=== PATIENT | female | born 2000 | race Caucasian/White ===

== ENCOUNTER 2024-02-12 17:46 | Emergency (ER) | payer OTHER ==
[~2024-02-12] VITALS: Ht 152.4 cm; Wt 72.7 kg
[2024-02-12 17:47] VITALS: BP 124/72; TEMP 97.5; O2SAT 100
[2024-02-12 18:26] LABS: BASO % 0.4 % (0.0-1.0); EOS # 0.2 10^3/uL (0.0-0.5); EOS % 2.4 % (0.0-3.0); HEMATOCRIT 40.6 % (36.0-47.0); HEMOGLOBIN 13.5 g/dl (12.0-15.5); LYMPH # 1.8 10^3/uL (1.5-5.0); LYMPH % 24.7 % (24.0-44.0); MEAN CORPUSCULAR HEMOGLOBIN 29.5 pg (27.0-33.0); MEAN CORPUSCULAR HGB CONC 33.3 g/dl (32.0-36.5); MEAN CORPUSCULAR VOLUME 88.6 fl (80.0-96.0); MONO # 0.5 10^3/uL (0.0-0.8); MONO % 6.8 % (2.0-8.0); NEUTROPHILS # 4.6 10^3/uL (1.5-8.5); NEUTROPHILS % 65.6 % (36.0-66.0); PLATELET COUNT, AUTOMATED 321 10^3/uL (150-450); RED BLOOD COUNT 4.58 10^6/uL (4.00-5.40); WHITE BLOOD COUNT 7.1 10^3/uL (4.0-10.0)
[2024-02-12 19:02] LABS: BLOOD UREA NITROGEN 11 MG/DL (9-23); CALCIUM LEVEL 9.2 MG/DL (8.5-10.1); CARBON DIOXIDE LEVEL 24 MMOL/L (20-31); CHLORIDE LEVEL 110 MMOL/L (98-107); CREATININE FOR GFR 0.64 MG/DL (0.55-1.30); GLOMERULAR FILTRATION RATE > 60.0 (>60); GLUCOSE, FASTING 83 MG/DL (60-100); POTASSIUM SERUM 4.5 MMOL/L (3.5-5.1); SODIUM LEVEL 138 MMOL/L (136-145)
[2024-02-12 19:41] LABS: HCG, SERUM QUANTITATIVE 163731.4 MIU/ML (<4.2)
== END 2024-02-12 21:52 | disposition home or self-care (01) ==
LOC: M ED 17:46
DX: O26.851 Spotting complicating pregnancy, first trimester (principal); O99.351 Diseases of the nervous system complicating pregnancy, first trimester; G47.00 Insomnia, unspecified; Z3A.01 Less than 8 weeks gestation of pregnancy

== ENCOUNTER 2024-08-10 19:06 | Emergency (ER) | payer BC, MEDICAID, OTHER ==
[~2024-08-10] VITALS: Ht 152.4 cm; Wt 63.6 kg
[2024-08-10 19:12] VITALS: BP 154/73; TEMP 101; O2SAT 97
[2024-08-10] MEDS ORDERED: LEVO125T4 PO (19:43)
[2024-08-10] MEDS ORDERED: VITAD400CA FT (19:43)
[2024-08-10] MEDS ORDERED: ACET-897 PO (19:43)
[2024-08-10] MEDS ORDERED: VITA100T59 PO (19:43)
[2024-08-10] MEDS ORDERED: PRENTAB9 PO (19:43)
[2024-08-10] MEDS ORDERED: VENTAER INH (19:45)
== END 2024-08-10 19:15 | disposition admitted as inpatient to this hospital (09) ==
LOC: M ED 19:06
DX: Z53.21 Procedure and treatment not carried out due to patient leaving prior to being seen by health care provider (principal)

== ENCOUNTER 2024-08-10 19:20 | Outpatient (CLI) | payer BC, OTHER ==
[~2024-08-10] VITALS: Ht 152.4 cm; Wt 80.7 kg
[2024-08-10 19:41] VITALS: BP 118/67; O2SAT 97
[2024-08-10] MEDS ORDERED: ACET-897 PO (19:43)
[2024-08-10] MEDS ORDERED: VITAD400CA FT (19:43)
[2024-08-10] MEDS ORDERED: LEVO125T4 PO (19:43)
[2024-08-10] MEDS ORDERED: PRENTAB9 PO (19:43)
[2024-08-10] MEDS ORDERED: VITA100T59 PO (19:43)
[2024-08-10] MEDS ORDERED: VENTAER INH (19:45)
[2024-08-10] MEDS ORDERED: HOME MED LIST COMPLETE! XX SCH (19:50)
[2024-08-10 20:45] LABS: HEMATOCRIT 35.8 % (36.0-47.0); HEMOGLOBIN 10.3 g/dl (12.0-15.5); MEAN CORPUSCULAR HEMOGLOBIN 26.7 pg (27.0-33.0); MEAN CORPUSCULAR HGB CONC 28.8 g/dl (32.0-36.5); MEAN CORPUSCULAR VOLUME 92.7 fl (80.0-96.0); PLATELET COUNT, AUTOMATED 238 10^3/uL (150-450); RED BLOOD COUNT 3.86 10^6/uL (4.00-5.40); WHITE BLOOD COUNT 6.7 10^3/uL (4.0-10.0)
[2024-08-10] MEDS: ACETAMINOPHEN 500 MG TAB PO ONE (20:51)
[2024-08-10 21:33] VITALS: BP 109/58
[2024-08-10 23:09] LABS: ALBUMIN 2.5 G/DL (3.2-5.2); ALKALINE PHOSPHATASE 107 U/L (35-104); ALT/SGPT 28 U/L (7.0-40); AST/SGOT 25 U/L (<34); BILIRUBIN,TOTAL 0.4 MG/DL (0.3-1.2); BLOOD UREA NITROGEN 6 MG/DL (9-23); CARBON DIOXIDE LEVEL 18 MMOL/L (20-31); CHLORIDE LEVEL 106 MMOL/L (98-107); CREATININE FOR GFR 0.58 MG/DL (0.55-1.30); GLOMERULAR FILTRATION RATE > 60.0 (>60); GLUCOSE, FASTING 76 MG/DL (60-100); POTASSIUM SERUM 3.6 MMOL/L (3.5-5.1); SODIUM LEVEL 137 MMOL/L (136-145); TOTAL PROTEIN 6.3 G/DL (5.7-8.2)
[2024-08-10 23:49] VITALS: BP 100/55
== END 2024-08-11 00:15 | disposition home or self-care (01) ==
LOC: M LDO 19:20
PROVIDERS: ATTEND Specialist
DX: O98.519 Other viral diseases complicating pregnancy, unspecified trimester (principal); B97.81 Human metapneumovirus as the cause of diseases classified elsewhere; Z3A.33 33 weeks gestation of pregnancy
CPT/HCPCS: 36415; 59025; 80053; 85027; 87486; 87581; 87633; 87798; G0463

== ENCOUNTER 2025-01-21 17:16 | Inpatient (IN) | payer BC, OTHER ==
[~2025-01-21] VITALS: Ht 152.4 cm; Wt 76.4 kg
[~2025-01-21 17:16] MED LIST: ACET-897 PO; LEVO125T4 PO; PRENTAB9 PO; VENTAER INH; VITA100T59 PO; VITAD400CA FT
[2025-01-21] MEDS ORDERED: ZOLO100T PO (17:35)
[2025-01-21 17:54] LABS: PLATELET COUNT, AUTOMATED 414 10^3/uL (150-450)
[2025-01-21] MEDS ORDERED: HOME MED LIST COMPLETE! XX SCH (18:15)
[2025-01-21 18:24] LABS: ETHYL ALCOHOL (ETHANOL) < 0.003 % (0.000-0.010)
[2025-01-21 18:25] LABS: SALICYLATE LEVEL < 3.0 MG/DL (<30)
[2025-01-21 18:26] LABS: ALT/SGPT 21 U/L (7.0-40); AST/SGOT 22 U/L (<34); CALCIUM LEVEL 9.9 MG/DL (8.5-10.1); CARBON DIOXIDE LEVEL 24 MMOL/L (20-31); CHLORIDE LEVEL 105 MMOL/L (98-107); CREATININE FOR GFR 0.81 MG/DL (0.55-1.30); GLOMERULAR FILTRATION RATE > 90.0 (>60); POTASSIUM SERUM 4.3 MMOL/L (3.5-5.1); SODIUM LEVEL 142 MMOL/L (136-145)
[2025-01-21 18:30] LABS: HCG, SERUM QUALITATIVE NEGATIVE (NEGATIVE)
[2025-01-21 18:34] LABS: AMPHETAMINES LEVEL URINE NEGATIVE (NEGATIVE); BARBITURATES URINE NEGATIVE (NEGATIVE); BENZODIAZEPINES URINE NEGATIVE (NEGATIVE); CANNABINOIDS URINE NEGATIVE (NEGATIVE); COCAINE METABOLITE URINE NEGATIVE (NEGATIVE); METHADONE URINE NEGATIVE (NEGATIVE); OPIATES URINE NEGATIVE (NEGATIVE); PHENCYCLIDINE URINE NEGATIVE (NEGATIVE)
[2025-01-21] MEDS ORDERED: IBUPROFEN 400 MG TAB PO PRN (20:45)
[2025-01-21] MEDS ORDERED: MAALOX 30 ML SUSP *UDC PO PRN (20:45)
[2025-01-21] MEDS ORDERED: MOM 30 ML SUSPENSION UDC PO PRN (20:45)
[2025-01-21] MEDS ORDERED: ALBUTEROL 90 MCG/ACT 8 GM HFA INHALER INH PRN (20:45)
[2025-01-21 23:56] VITALS: BP 108/57; TEMP 96.9; O2SAT 96
[2025-01-22] MEDS: ACETAMINOPHEN 325 MG TAB PO PRN (00:21)
[2025-01-22] MEDS: traZODone 50 MG TAB PO PRN (00:21)
[2025-01-22] MEDS: LEVOTHYROXINE 125 MCG TABLET (0.125 MG) PO SCH (06:09)
[2025-01-22 06:29] VITALS: BP 100/60; TEMP 96.1; O2SAT 95
[2025-01-22] MEDS: SERTRALINE 100 MG TAB PO SCH (08:32)
[2025-01-22] MEDS: FLUoxetine 20 MG CAP PO SCH (11:10)
[2025-01-22 13:02] LABS: FREE T4 1.09 NG/DL (0.89-1.76)
[2025-01-22 15:10] VITALS: BP 105/68; TEMP 98.2; O2SAT 97
[2025-01-23 06:33] VITALS: BP 114/76; TEMP 97; O2SAT 100
[2025-01-23 14:45] VITALS: BP 109/67; TEMP 97.5; O2SAT 95
[2025-01-24 06:40] VITALS: BP 114/65; TEMP 96.6; O2SAT 99
[2025-01-24] MEDS ORDERED: BUSP10TA PO (08:14)
[2025-01-24] MEDS ORDERED: FLUO-365 PO (08:14)
== END 2025-01-24 12:35 | disposition home or self-care (01) | DRG 885 ==
LOC: M ED 17:16 → EDBD 17:16 → M ED INP 20:41 → M PSY 23:19
PROVIDERS: ADMIT Psychiatry & Neurology Neurology; ATTEND Psychiatry & Neurology Neurology
DX: F33.2 Major depressive disorder, recurrent severe without psychotic features (principal); R45.851 Suicidal ideations; F41.1 Generalized anxiety disorder; F43.10 Post-traumatic stress disorder, unspecified; J45.909 Unspecified asthma, uncomplicated; E89.0 Postprocedural hypothyroidism; E66.9 Obesity, unspecified; Z91.52 Personal history of nonsuicidal self-harm; Z91.51 Personal history of suicidal behavior; Z63.5 Disruption of family by separation and divorce; Z81.8 Family history of other mental and behavioral disorders; Z81.1 Family history of alcohol abuse and dependence; Z62.810 Personal history of physical and sexual abuse in childhood; Z56.0 Unemployment, unspecified; Z79.890 Hormone replacement therapy; Z79.899 Other long term (current) drug therapy